=== PATIENT | female | born 1960 | race Caucasian/White ===

== ENCOUNTER 2020-02-27 20:30 | Emergency (ER) | payer MEDICARE ==
[~2020-02-27] VITALS: Ht 172.7 cm; Wt 87.0 kg
[2020-02-27 20:32] VITALS: BP 120/78
--- NOTE | 2020-02-27 21:20 | NUR ---
60/F. Pt has a fractured vertebrae. Factured on 02/10 from a fall. Went to ER on 02/13. Pt was already seeing a pain management. Pt having worsening pain. Call pain doc and told to come to ER, wanting an MRI. Pt is having increased incontinence.
[2020-02-27 23:32] LABS: MEAN CORPUSCULAR HEMOGLOBIN 28.2 pg (27.0-34.8); MEAN CORPUSCULAR HGB CONC 32.1 g/dL (32.4-35.8); MEAN PLATELET VOLUME 7.1 fL (7.4-10.4); PLATELET COUNT 334 x10^3/uL (130-400); RED CELL DISTRIBUTION WIDTH 20.1 % (9.6-15.2)
[2020-02-27 23:40] LABS: ALBUMIN 3.2 g/dL (3.4-5.0); CALCIUM 8.5 mg/dL (8.5-10.1); CHLORIDE 102 mmol/L (98-107); CREATININE 0.87 mg/dL (0.55-1.02)
[2020-02-27 23:49] LABS: ANION GAP 2 mmol/L (5-15)
--- NOTE | 2020-02-27 23:56 | NUR ---
Went to pt room to complete MRI screen and prepare for MRI. Pt not present in room. Pt taken to MRI prior to RN prepping pt.
[2020-02-28 00:11] LABS: BASOPHILS # (AUTO) 0.06 x10^3/uL (0-0.1); BASOPHILS % (AUTO) 1 % (0-1); EOSINOPHILS # (AUTO) 0.14 x10^3/uL (0-0.4); EOSINOPHILS % (AUTO) 2 % (1-7); LYMPHOCYTES # (AUTO) 1.82 x10^3/uL (1-3.4); LYMPHOCYTES % (AUTO) 19 % (22-44); MD SCAN; MONOCYTES # (AUTO) 0.37 x10^3/uL (0.2-0.8); MONOCYTES % (AUTO) 4 % (2-9); NEUTROPHILS # (AUTO) 7.04 x10^3/uL (1.8-6.8); NEUTROPHILS % (AUTO) 75 % (42-75)
[2020-02-28] MEDS ORDERED: HYDROmorphone 1 MG/ML, 1ML INJ IM ONE (01:30)
[2020-02-28] MEDS ORDERED: HYDROmorphone 1 MG/ML, 1ML INJ ONE (01:34)
[2020-02-29] MEDS ORDERED: hormone replacement PO (08:51)
[2020-02-29] MEDS ORDERED: TRAM50TA2 PO (08:51)
[2020-02-29] MEDS ORDERED: HYDR4TAB48 PO (08:51)
[2020-02-29] MEDS ORDERED: GABA600T7 PO (08:51)
[2020-02-29] MEDS ORDERED: levothyroxine PO (08:51)
[2020-02-29] MEDS ORDERED: ESCI20TA10 PO (08:51)
== END 2020-02-28 02:11 ==
LOC: ED 21:17
DX: M48.56XA Collapsed vertebra, not elsewhere classified, lumbar region, initial encounter for fracture (principal); M54.16 Radiculopathy, lumbar region; M51.26 Other intervertebral disc displacement, lumbar region
CPT/HCPCS: 36415; 72148; 80048; 82040; 85025; 96372; 99284; J1170